=== PATIENT | female | born 2005 | race Caucasian/White ===

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

== ENCOUNTER 2025-02-13 17:38 | Emergency (ER) | payer OTHER, SELFPAY ==
--- NOTE | 2025-02-13 17:44 | ED.URI ---
HPI - URI/Sore Throat General Chief Complaint: Upper Respiratory Infection Stated Complaint: strep Time Seen by Provider: 02/13/25 17:41 Source: patient Mode of arrival: ambulatory Limitations: no limitations History of Present Illness HPI Narrative: patient is a 19-year-old female who presents with sore throat that started this morning. also having neck pain, headache, hot cold chills, body aches. Patient is currently going through miscarriage. Denies any fever, nausea, vomiting, diarrhea. Related Data Allergies Allergy/AdvReac Type Severity Reaction Status Date / Time No Known Drug Allergies Allergy Unknown Verified 02/13/25 17:48 Review of Systems Review of Systems: All systems reviewed & are unremarkable except as noted in HPI and below Constitutional: Constitutional: Reports chills, Reports fatigue, Denies fever(s), Reports headache(s), Denies malaise and Denies weakness Eyes: Eyes: Denies blurry vision, Denies itchy eyes and Denies loss of vision ENT: Denies otalgia, Reports headache(s), Denies nasal congestion, Denies sinus pain and Reports sore throat Cardiovascular: Cardiovascular: Denies chest pain, Denies irregular heart rhythm and Denies dyspnea Respiratory: Respiratory: Denies cough and Denies dyspnea Gastrointestinal: Gastrointestinal: Denies abdominal pain, Denies diarrhea, Denies nausea and Denies vomiting Musculoskeletal: Musculoskeletal: Denies back pain, Reports myalgias and Denies arthralgias Integumentary/Breasts: Skin/Breast: Denies pruritus and Denies rash Neurologic: Reports headache(s), Denies loss of vision and Denies weakness Psychiatric: Psychiatric: Reports no additional psychiatric complaints Endocrine: Endocrine: Denies fatigue Allergic/Immunologic: Allergic/Immunologic: Denies itchy eyes PMFSH Social History Social History Smoking status: Never smoker Gender identity (if verbalized by the patient): Female Comments At time of signature, agree with nursing past medical, surgical, social and family history. There is no relevant family history pertinent to the presenting complaint. Exam Const: General: cooperative, healthy appearing, comfortable, no acute distress and well nourished Nutritional Appearance: well nourished Orientation/consciousness: patient oriented x3 Limitations: no limitations HENMT: Head: normal to inspection, normocephalic and atraumatic Ears: hearing grossly normal bilaterally, external ears normal, TM's normal bilaterally, EAC's normal and no periauricular adenopathy Face/Nose/Sinus: Normal external nose present, Abnormal mucous membranes and turbinates present erythematous bilateral and diffuse, normal facial exam, sinuses nontender and face symmetric Face and sinus: normal facial exam, sinuses nontender and face symmetric Mouth: Yes Normal oral and palatal mucosa present, Yes lip normal, Yes tongue normal, Yes Normal salivary glands and ducts present, Yes oropharynx normal and Yes moist mucous membranes Teeth and gingiva: dentition normal Throat: uvula midline, posterior oropharynx abnormal erythema and exudates and tonsils absent Eyes: General: appearance normal, both eyes and all related structures Alignment and Position: alignment normal and position normal Periorbital: periorbital findings normal Eyelids: eyelids normal Pupils: Equal, round and reactive pupils present Neck: Neck: normal visual inspection, full ROM, no lymphadenopathy and supple Chest: Chest palpation & inspection: normal inspection of the chest and normal palpation of entire chest wall Resp: Effort & Inspection: normal respiratory effort and able to speak in complete sentences Auscultation: clear to auscultation bilaterally, no crackles, no rales, no rhonchi and no wheezes Cardio: Rate: tachycardic Rhythm: regular rhythm Heart sounds: S1 normal heart sound present and S2 normal heart sound present GI: Inspection: normal to inspection Skin: General skin exam: normal color and no rashes or lesions noted Neuro: General: patient oriented x3 and moves all extremities Cranial nerves: Yes Equal, round and reactive pupils present Speech: normal speech Gait exam (Neuro): Normal gait present Extrem: General: normal to inspection, full ROM and no edema Psych: Appearance: grossly normal and well kempt Mental Status: mental status grossly normal Speech and movement: Normal speech and movement present Affect: normal affect Attitude: cooperative Thought process: Normal thought process present Course Course Emergency Course: Patient is aware of diagnosis, understands and agrees to treatment plan. Anticipatory guidance given. Patient agrees to follow-up as directed and is aware of reasons to seek care at the emergency department. Portions of this record may have been created with voice recognition software Level of Care: Express Care Visit Vital Signs Vital signs: Vital Signs Temperature 37.6 C H 02/13/25 18:04 Pulse Rate 135 H 02/13/25 18:04 Respiratory Rate 18 02/13/25 18:04 Blood Pressure 114/63 02/13/25 18:04 Pulse Oximetry 99 02/13/25 18:04 Oxygen Delivery Room Air 02/13/25 18:04 Temperature 37.6 C H 02/13/25 18:04 Pulse Rate 135 H 02/13/25 18:04 Respiratory Rate 18 02/13/25 18:04 Blood Pressure 114/63 02/13/25 18:04 Pulse Oximetry 99 02/13/25 18:04 Oxygen Delivery Room Air 02/13/25 18:04 MDM MDM Narrative Medical decision making narrative: Strep was positive. Will treat with antibiotics. education provided to prevent infection Pt well hydrated appearing, in no respiratory distress, hemodynamically stable. Recommend supportive care. The patient is stable at time of discharge the clinical impression was discussed and the patient was given the opportunity to ask questions, which were addressed as completely as possible given the information available at present. Anticipatory guidance and return to care precautions were discussed and the importance of primary care follow-up was stressed and encouraged. The patient voiced understanding of the plan, indications to return, and the need for follow-up. Exam findings show no acute concerns or changes Patient is appropriate for outpatient treatment and follow-up. Differential Diagnosis Differential Diagnosis: Differential diagnosis considered: Ruiz virus, strep pharyngitis, allergic rhinitis, upper respiratory tract infection, sinusitis, rhinosinusitis, nasopharyngitis. viral pharyngitis, otitis media, otitis externa, otitis effusion, foreign body, cerumen impaction, viral syndrome, and influenza. Medical Records I have reviewed the following patient records and this information was taken into consideration when formulating the assessment and plan.: previous clinic visits Lab Data Labs: Lab Results 02/13/25 02/13/25 Range/Units 18:11 18:17 POC Influenza A Ag Negative (Negative) POC Influenza B Ag Negative (Negative) POC SARS CoV-2 Ag Negative (Negative) POC Grp A Strep Screen Positive (Negative) Discharge Plan Discharge Clinical Impression: Strep throat Patient Disposition: Home Condition: Stable Instructions: Strep Throat (ED) Additional Instructions: Your rapid strep swab was positive today at [facility]. After 24 hours on antibiotics throw tooth brush away and start using a new one. Wash your sheets and cup/water bottle that is used daily. Do not share drinks. Take Motrin alternating with Tylenol for pain and fever alternating every 3 hours. 8 AM: Tylenol 11 AM: Ibuprofen 2 PM: Tylenol 5 PM: Ibuprofen 8 PM: Tylenol 11 PM: Ibuprofen 2 AM: Tylenol 5 AM: Ibuprofen Increase fluids, avoid caffeine. Other symptomatic treatments include: -Antihistamine medication such as Benadryl at night and Zyrtec/Claritin/Jazzy during the day can help improve symptoms. -Use Flonase twice a day for 5 days then daily to help reduce the inflammation and dry up your sinuses. -You can also use Sudafed or Mucinex. Be sure to drink plenty of water with these medications at least 8 ounces with every dose and it is important to drink 8 to 10 glasses of water per day. Water is a natural decongestant -Eat and drink things that are easy to swallow, like tea or soup, or popsicles. -Oral rinses such as: Salt water gargles and/or may use topical anesthetic (eg. Chloraseptic spray) or lozenges to relieve dryness or throat pain). -Frequent hand washing or hand automotive metalsmith is one of the best ways to prevent spread of infection. -Using a vaporizer or humidifier at night will also help thin secretions and help with coughing up phlegm. -Follow up with primary care provider in 3-5 days if condition is not improving - For new or worsening symptoms go directly to the nearest ER Patient Language: Latvian Prescriptions: New amoxicillin 500 mg capsule 500 mg PO BID 10 Days Qty: 20 0RF Follow-up/Referrals: Nina,Oscar Buitrago MD [Primary Care Provider] Stand Alone Forms: Work/School Release IP Time of Disposition: 18:34
--- OUTSIDE RECORDS SUMMARY | 2025-02-13 17:45 | XMS_ITS | Encounter Summary ---
Author Organization [facility] Healthcare Address [address] [place] [address] Care Team Providers Care Investigation Division Sergeant Name Role Phone No, Physician Primary Care Provider [phone] Encounter Details Date Type Department Care Team (Late st Contact Info) Description 09/08/2024 Documentation [facility] [address] [place] [address] 4th [address] [place] [address] Aurea Stafford Social History Tobacco Use Types Packs/Day Years Used Date Smoking Tobacco: Never Smokeless Tobacco: Never Comments Unknown Sex and Gender Information Value Date Recorded Sex Assigned at Not on file 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
--- OUTSIDE RECORDS SUMMARY | 2025-02-13 17:45 | XMS_ITS | Clinical Summary ---
Author Organization [facility] Address [address] [place] [address] Care Team Providers Care Securities Consultant Name Role Phone Surendra Wood MD Primary Care Provider Social History Tobacco Use Types Packs/Day Years Used Date Smoking Tobacco: Never Assessed Comments Unknown Sex and Gender Information Value Date Recorded Sex Assigned at Not on file Legal Sex Female 11:54 PM CDT Gender Identity Not on file Sexual Orientation Not on file Plan of Treatment Health Maintenance Due Date Last Done Comments Hepatitis C Virus (HCV) Screening 2003 Meningococcal B Immunization (2 of 2 - Bexsero SCDM 2-dose series) 11/30/2020 05/30/2020 Influenza Immunization (#1) 2024 11/0 06/2013, 03/07/2013, 03/19/2010 SARS-COV-2 Immunization (2024- season) 2024 Respiratory Syncytial Virus (RSV) Immunization (Adult) (1 - 1-dose 75+ series) 08/02/2078 Hepatitis B Immunization Completed 004, 2003, 2003, Additional history exists Pneumococcal Immunization Combined Aged Out 11/26/2004, 02/22/2004, 2003, Additional history exists No longer eligible based on patient's age to complete this topic Hepatitis A Immunization Discontinued 02/19/2006, 07/14 Measles Mumps Rubella (MMR) Immunization Discontinued 07/09/2008, 08/13/2004 Polio (IPV) Immunization Discontinued 009, 02/22/2004, 2003, Additional history exists Varicella Immunization Completed 07/09/2008, 2004 DTaP/Tdap/Td Immunization Discontinued 2013, 07/09/2008, 11/26/2004, Additional history exists TdaP Immunization Completed 10/24/2013 Human Papillomavirus (HPV) Immunization Completed 06/18/2016, 12/23/2015, 10/21/2015 Meningococcal Immunization (ACWY) Completed 05/30/2020, 10/21/2015 Rotavirus Immunization Aged Out No lo nger eligible based on patient's age to complete this topic Insurance [place] Care Teams Securities Consultant Relationship Specialty Start Date End Date Surendra Wood MD [address] [place] [address] [place] [id number] PCP - General Pediatrics 05/02/20
--- OUTSIDE RECORDS SUMMARY | 2025-02-13 17:45 | XMS_ITS | Continuity of Care Document ---
Author Organization [facility] [place] Address [address] [place] [address] Assessment No assessment recorded. Plan of Treatment Reminders Order Date Submit Date Provider Last Modified By Organization Details Last Modified Time Details Appointments None recorded. Lab None recorded. Referral None recorded. Procedures None recorded. Surgeries None recorded. Imaging None recorded. Medication Orders Cytotec 200 mcg tablet 025 025 [id number], [address] [place], [address], 15:17:54 Patient TargetsNo targets recorded. Patient InstructionsNo instructions recorded. Reason for Referral None Reported. Results Created Date Observation Date Name Description Value Unit Range Abnormal Flag Note LastModifiedBy Organization Detail LastModifiedTime 01/27/20 25 01/26/2025 US, obste tric, trans vagin al No observ ation record ed. [facility] [address], [place], [address], 01/26/2025 16:58:27 01/27/20 25 01/26/2025 US, obste tric, trans vagin al No observ ation record ed. [email or web address] [place] [address], [place], [address], 01/26/2025 18:03:28 02/03/20 25 02/02/2025 US, obste tric, trans vagin al No observ ation record ed. [facility] [address], [place], [address], 02/02/2025 16:57:32 02/03/20 25 02/02/2025 US, obste tric, trans vagin al No observ ation record ed. [email or web address] [place] [address], [place], [address], 02/03/2025 23:19:10 Result Notes None recorded. Procedures Surgical History Date Name Laterality Status Provider Name and Address Organization Details Recorded Time 7 Tonsillectomy completed Zenaida Arevalo [facility] 01/11/2021 12:32:53 Imaging Results None recorded. Procedure Notes None recorded. Medical Equipment None Reported. Allergies No known drug allergies Medications Name Sig Start Date Stop Date Status Note LastModified by Organization Details LastModified Time cyclobenzapr ine 10 mg tablet TAKE 1 TABLET BY MOUTH EVERY 12 HOURS NEEDED 12/18 completed Not Available Not Available Not Available amoxicillin 500 mg capsule TAKE 1 CAPSULE BY MOUTH THREE TIMES A DAY FOR 10 DAYS 04/22 completed Not Available Not Available Not Available Cytotec 200 mcg tablet Take 5 tablets by oral route. 2024 active Not Available Not Available Not Avai lable hydrocodone 5 mg-acetamino phen 325 mg tablet Take 1 tablet every 6 hours by oral route. 2024 active Not Available Not Available Not Avai lable ondansetron HCl 8 mg tablet 12/17 completed Not Available Not Available Not Available prednisone 20 mg tablet TAKE 3 TABLETS EVERY DAY BY ORAL ROUTE FOR 5 DAYS. 01/13 completed Not Available Not Available Not Available metronidazol e 500 mg tablet Take 1 tablet twice a day by oral route with meal(s) for 7 days. 01/01 completed Not Available Not Available Not Available propranolol 10 mg tablet 02/28 completed Not Available Not Available Not Available amitriptylin e 25 mg tablet TAKE 1 TABLET BY MOUTH EVERY DAY active Not Available Not Available No t Available Nortrel 1/35 (21) 1 mg-35 mcg tablet take 1 tablet daily 12/18 completed Not Available Not Available Not Available hydrocortiso ne 2.5 % topical cream 01/13 completed Not Available Not Available Not Available ergocalcifer ol (vitamin D2) 1,250 mcg (50,000 unit) capsule 12/17 completed Not Available Not Available Not Available ibuprofen 600 mg tablet 06/03 completed Not Available Not Available Not Available propranolol 20 mg tablet 02/28 completed Not Available Not Available Not Available hydrocortiso ne 2.5 % topical ointment 01/11 completed Not Available Not Available Not Available fluticasone propionate 50 mcg/actuatio n nasal spray,suspen del USE ONE SPRAY IN EACH NOSTRIL ONCE A DAY 01/13 completed Not Available Not Available Not Available amoxicillin 875 mg-potassium clavulanate 125 mg tablet TAKE 1 TABLET BY MOUTH EVERY 12 HOURS FOR 10 DAYS 04/22 completed Not Available Not Available Not Available naproxen 375 mg tablet,delay ed release TAKE 1 TABLET BY MOUTH EVERY 8 HOURS AFTER MEALS NEEDED 12/18 completed Not Available Not Available Not Available 1.08/11 (28) 1.5 mg-30 mcg (21)/75 mg (7) tablet 12/27 completed Not Available Not Available Not Available hydrocodone 5 mg-acetamino phen 300 mg tablet Take 1 tablet every 4 hours by oral route. active Not Available Not Available No t Available cholecalcife rol (vitamin D3) 1,250 mcg (50,000 unit) capsule active Not Available Not Available Not Available Vitals None Recorded Social History Question Answer Notes LastModified by Organizat ion Details LastModified Time Tobacco Smoking Status Never Smoker [facility] 12/18/2019 12:58:42 If You Are , What Was Your Level Of Alcohol Consumption Prior To ? None [email or web address] Information not available 01/11/2021 Are You Blind Or Do You Have Difficulty Seeing? No [email or web address] Information n ot available 01/11/2021 What Is Your Level Of Caffeine Consumption? Occasional [email or web address] Information not available 01/11/2021 In The 14 Days Before Symptom Onset, Have You Had Close Contact With A Laboratory-confirm ed COVID-19 While That Case Was Ill? No [email or web address] Information n ot available 01/11/2021 In The 14 Days Before Symptom Onset, Have You Had Close Contact With A Person Who Is Under Investigation For COVID-19 While That Person Was Ill? No [email or web address] Information not available 01/11/2021 Have You Been To An Area Known To Be High Risk For COVID-19? No [email or web address] Information not available 01/11/2021 Are You Deaf Or Do You Have Serious Difficulty Hearing? No [email or web address] Information not available 01/11/2021 What Type Of Diet Are You Following? REGULAR [email or web address] Information n ot available 01/11/2021 Have You Ever Been Counseled For Unhealthy Alcohol Use? No [email or web address] Information not available 01/11/2021 Do You Use Your Seat Belt Or Car Seat Routinely? Yes [email or web address] Information not available 01/11/2021 Do You Have Smoke And Carbon Monoxide Detectors In Your Home? Yes [email or web address] Information not available 01/11/2021 Do You Use Sunscreen Routinely? Yes [email or web address] Information not available 01/11/2021 Has Tobacco Cessation Counseling Been Provided? No [email or web address] Information not available 01/11/2021 Sex: Unknown Functional Status Question Answer Note LastModified by Organizat ion Details LastModified Time Do you use any illicit or recreational drugs? No [email or web address] Information not available 01/11/2021 Do you or have you ever used any other forms of tobacco or nicotine? No Information not available 01/11/2021 What is your level of alcohol consumption? Occasional [email or web address] Information not available 01/11/2021 Are you able to walk independently without assistance or assistive devices? YESWOREST [email or web address] Information not available 01/11/2021 What is your exercise level? Occasional [email or web address] Information not available 01/11/2021 Mental Status Question Answer Note LastModified by Organization D etails LastModified Time Do you feel stressed (tense, restless, nervous, or anxious, or unable to sleep at night)? [id number] [email or web address] Information not available 01/11/2021 Family History Relationship Description Onset Age of this Age Resolved Age Notes LastModified by Organization Details LastModified Time Mother Malignant neoplasm of cervix uteri [email or web address] Not available 07/2019 12:57:13 Mother Hypertensive disorder [email or web address] Not available 2019 12:57:42 Mother Cyst of ovary [email or web address] Not available 2019 12:58:10 Father Heart disease [email or web address] Not available 2019 12:57:22 Father Diabetes mellitus [email or web address] Not available 2019 12:57:29 Father Hypertensive disorder [email or web address] Not available 2019 12:57:42 Sister Cyst of ovary [email or web address] Not available 2019 12:58:10 Sister Uterine prolapse [email or web address] Not available 2019 12:58:33 Maternal Grandmother Malignant neoplasm of cervix uteri [email or web address] Not available 07/2019 13:05:44 Maternal Aunt Malignant neoplasm of cervix uteri [email or web address] Not available 07/2019 13:05:49 Maternal Aunt Cyst of ovary [email or web address] Not available 2019 13:05:59 Maternal Aunt Endometrial carcinoma Not available 01/13 15:43:27 Maternal Aunt Endometrial carcinoma [email or web address] Not available 01/13 15:43:27 Son Malignant neoplasm of ovary matern al cousin x2 [email or web address] Not available 01/13/2021 15:42:56 Medical History Condition Response Allergies (Food, seasonal, environmental ) N Other N Drug/Latex Allergies/Reactions N Blood Transfusion N Breast Cancer N Dermatologic Disorders N Lung Disease N Defects or Inherited Disease N Breast Problem N Gestational Diabetes N Hematologic disorders N Anesthesia Complications N History of STI N Deep Vein Thrombosis N Polycystic ovary syndrome N Anxiety Disorder Y Autoimmune disease N Arthritis N Polyps N Infertility N Acid Reflux (GERD) N History of abnormal pap N Cancer N Varicosities N Stroke N Neurologic/Epilepsy N Endometriosis N High Cholesterol N Fibromyalgia N Headaches Y Kidney Disease N Heart Problems N Thyroid Problems N Kidney or Bladder Problems N GI Problems N Eating Disorder N Anemia N Art (IVF or FET) N Psychiatric Illness N Ovarian Cancer N Diabetes N Pulmonary (TB, Asthma) N Hepatitis/Liver Disease N No Past Medical History N Eczema N Urinary Tract Infection N Abuse/Domestic Violence N Asthma N Trauma/Violence N Depression/ depression N Heart Disease N Pre-Eclampsia N Hypertension N Osteoporosis N Thrombophilias N Gynecological History Statement/Question Response Flow Moderate Date of Last Mammogram Date of LMP 11/27/2024 Was last menstrual period normal Y STIs/STDs N HPV Vaccine Y Duration of Flow (days) 5 14 Current Control Method None Are cycles usually normal Y Date of Last Colonoscopy Frequency of Cycle (Q days) 28 Sexually Active? Y Menses Monthly Y Date of DEXA bone scan Age of first menstrual cycle 11 Date of Last Pap Smear Sexual Problems? N Desired Control Method None LMP Approximate Obstetrics History GPAL:G 0 P 0 0 0 0 Type Value Living 0 Total 0 Past Encounters Encounter ID Performer Location Encounter Start Date Encounter Closed Date Diagnosis/Indication Diagnosis SNOMED-CT Code Diagnosis ICD10 Code Diagnosis IMO Codes Diagnosis Note [id number] Franklin Avendaño MD [place] [address] [address] 01/26/2025 14:29:35 01/26/2025 15:03:50 Uncertain viability of [id number] O36.80X0 Z3A.01 [id number] Franklin Avendaño MD [facility] [address],[place] [address] 01/26/2025 14:30:49 01/26/2025 17:40:53 [id number] Franklin Avendaño MD [place] [address],[place] [address] 02/02/2025 13:23:19 02/02/2025 14:08:12 Missed miscarriage [id number] O02.1 Z3A.01 [id number] Franklin Avendaño MD [facility] [address],[place] [address] 02/02/2025 14:37:10 02/02/2025 15:24:13 Missed miscarriage [id number] O02.1 [id number] This patient is a 19 y/o female who presents for [missed/th reatened/i ncomplete] discussed the etiology, frequency, natural history, and treatment of this condition. Spent more than 35 minutes talking about the above, as well as, her history, the particular findings of her case, and detail of her the treatment options. We discussed the risk benefits of each option. She understand s the risk include infection and hemorrhage . She understand s a D&C also holds the risk of injury. She understand s that waiting can result in a septic that is even more difficult to treat. We talked about signs and symptoms of infection. The patient elected to use medication to complete the miscarriag e. She was given instructio ns and precaution s. She was given risks, benefits, and alternativ es to the treatment. She will follow up in 1 week. Spent over 30 minutes on the patient's care in total. Health Concerns Section Related Observation LastModified by Organization Detai ls LastModified Time None Recorded Concern Status LastModified by Organization Details LastModified Time None Recorded Payers Encounter Date Sequence Insurance Name Policy Number Policy Reyes Covered Member ID Reyes Member ID Guarantor Name 02/02/2025 1 [facility] (MEDICAID HMO) [id number] [facility] [id number] [facility] Notes Date Note Type Note Provider Name and Address Organization Details Recorded Time 02/02/2025 text/html This patient is a 19 y/o female who presents for [missed/threatened /incomplete] discussed the etiology, frequency, natural history, and treatment of this condition. Spent more than 35 minutes talking about the above, as well as, her history, the particular findings of her case, and detail of her the treatment options. We discussed the risk benefits of each option. She understands the risk include infection and hemorrhage. She understands a D&C also holds the risk of injury. She understands that waiting can result in a septic that is even more difficult to treat. We talked about signs and symptoms of infection. The patient elected to use medication to complete the miscarriage. She was given instructions and precautions. She was given risks, benefits, and alternatives to the treatment. She will follow up in 1 week. Spent over 30 minutes on the patient's care in total. Franklin Avendaño MD [address], [place], [address], [place] [facility] 02/02/2025 15:18:18 OBGyn Episode No OBEpisode recorded.
--- OUTSIDE RECORDS SUMMARY | 2025-02-13 17:45 | XMS_ITS | Clinical Summary ---
Author Organization [facility] Address [address] [place] [address] Care Team Providers Care Business Trainer Name Role Phone No, Physician Primary Care Provider [phone] Allergies No known active allergies Medications Nortrel 135, 21, 1-35 mg-mcg (21) tablet 03/27/19 23 Active ibuprofen (ADVIL,MOTRIN) 600 mg tablet Take 1 tablet (600 mg total) by mouth every 6 (six) hours as needed for pain or headaches 30 tablet 6 07/21/19 23 Active ergocalciferol (VITAMIN D) 50,000 unit capsule Take 1 capsule (50,000 Units total) by mouth once a week 4 capsule 6 07/26/19 25 Active propranoloL (INDERAL) 20 mg tabletIndicatio ns:Migraine without aura and without status migrainosus, not intractable TAKE 1 TABLET (20 MG TOTAL) BY MOUTH DAILY 30 tablet 2 01/19/20 25 Active propranoloL (INDERAL) 20 mg tabletIndicatio ns:Migraine without aura and without status migrainosus, not intractable Take 1 tablet (20 mg total) by mouth daily 30 tablet 5 08/16/19 25 025 Discontinued Active Problems Problem Noted Date Diagnosed Date TMJ (dislocation of temporomandibular joint), se quela 06/14/2023 Migraine without aura and wi thout status migrainosus, not intractable 06/14/2023 Chronic daily headache 04/01/2022 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 Social History Tobacco Use Types Packs/Day Years Used Date Smoking Tobacco: Never Smokeless Tobacco: Never Tobacco Cessation:Counseling Given: Not Answered Comments Unknown Sex and Gender Information Value Date Recorded Sex Assigned at Not on file 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 Gender Identity Not on file Sexual Orientation Not on file Last Filed Vital Signs Vital Sign Reading Time Taken Comments Blood Pressure 121/86 07/25/2024 8:16 AM CDT Pulse 85 07/25/2024 8:16 AM CDT Temperature 36.6 C (97.9 F) 07/25/2024 8:16 AM CDT Respiratory Rate 16 07/20/2022 10:56 AM CDT Oxygen Saturation 99% 07/25/2024 8:16 AM CDT Inhaled Oxygen Concentration - - Weight 66.3 kg (146 lb 2 oz) 07/25/2024 8:16 AM CDT Height 173.5 cm (5' 8.31) 07/25/2024 8:16 AM CD T Body Mass Index 22.02 07/25/2024 8:16 AM CDT Plan of Treatment Health Maintenance Due Date Last Done Comments Cervical Cancer Screening 2003 Depression Screening 2003 Hepatitis C Screening 2003 Meningococcal B Vaccine (2 o f 2 - Bexsero SCDM 2-dose series) 11/30/2020 05/30/2020 Regular Well Visit/Exam 18-64 08/02/2021 DTaP/Tdap/Td Vaccine (7 - Td or Tdap) 10/25/2023 10/24/2013, 07/09/2008, 11/26/2004, Additional history exists Influenza Vaccine (#1) 2024 4, 03/07/2013, 03/19/2010, Additional history exists Hepatitis B Screening Completed 02/22/2004 , 2003, 2003, Additional history exists Pneumococcal vaccine <65 Completed 005, 02/22/2004, 2003, Additional history exists Varicella Vaccines Completed 07/09/2008, 08/13/2004 HPV Vaccines Completed 06/18/2016, 12/13, 10/21/2015 Meningococcal Vaccine Completed 05/30/2020, 016 Insurance [facility] Care Teams Business Trainer Relationship Specialty Start Date End Date No, Physician PCP - General 06/14/23
--- OUTSIDE RECORDS SUMMARY | 2025-02-13 17:45 | XMS_ITS | Continuity of Care Document ---
Author Organization [facility] [place] Address [address] [place] [address] Assessment No assessment recorded. Plan of Treatment Reminders Order Date Submit Date Provider Last Modified By Organization Details Last Modified Time Details Appointments None record ed. Lab None record ed. Referral None record ed. Procedures None record ed. Surgeries None record ed. Imaging None record ed. Medication Orders None record ed. Patient TargetsNo targets recorded. Patient InstructionsNo instructions recorded. Reason for Referral None Reported. Results Created Date Observation Date Name Description Value Unit Range Abnormal Flag Note LastModifiedBy Organization Detail LastModifiedTime 01/27/20 25 01/26/2025 US, obste tric, trans vagin al No observ ation record ed. [facility] [address], [place], [address], 01/26/2025 16:58:27 01/27/20 25 01/26/2025 US, obste tric, trans vagin al No observ ation record ed. [email or web address] [place] [address], [place], [address], 01/26/2025 18:03:28 02/03/20 25 02/02/2025 US, obste tric, trans vagin al No observ ation record ed. [facility] [address], [place], [address], 02/02/2025 16:57:32 02/03/20 25 02/02/2025 US, obste tric, trans vagin al No observ ation record ed. [email or web address] [place] [address], [place], [address], 02/03/2025 23:19:10 Result Notes None recorded. Procedures Surgical History Date Name Laterality Status Provider Name and Address Organization Details Recorded Time 7 Tonsillectomy completed Zenaida Arevalo [facility] 01/11/2021 12:32:53 Imaging Results None recorded. [...] completed Not Available Not Available Not Available .08/11 (28) 1.5 mg-30 mcg (21)/75 mg (7) [...] Time Tobacco Smoking Status [email or web address] 12/18/2019 12:58:42 If You Are , What Was Your Level Of Alcohol Consumption Prior To ? None [email or web address] Information not available 01/11/2021 Are You Blind Or Do You Have Difficulty Seeing? No [email or web address] Information n ot available 01/11/2021 What Is Your Level Of Caffeine Consumption? Occasional [email or web address] Information not available 01/11/2021 In The 14 Days Before Symptom Onset, Have You Had Close Contact With A Laboratory-confirm ed COVID-19 While That Case Was Ill? No [email or web address] Information n ot available 01/11/2021 In The 14 Days Before Symptom Onset, Have You Had Close Contact With A Person Who Is Under Investigation For COVID-19 While That Person Was Ill? No [email or web address] Information not available 01/11/2021 Have You Been To An Area Known To Be High Risk For COVID-19? No [email or web address] Information not available 01/11/2021 Are You Deaf Or Do You Have Serious Difficulty Hearing? No [email or web address] Information not available 01/11/2021 What Type Of Diet Are You Following? REGULAR [email or web address] Information n ot available 01/11/2021 Have You Ever Been Counseled For Unhealthy Alcohol Use? No [email or web address] Information not available 01/11/2021 Do You Use Your Seat Belt Or Car Seat Routinely? Yes [email or web address] Information not available 01/11/2021 Do You Have Smoke And Carbon Monoxide Detectors In Your Home? Yes [email or web address] Information not available 01/11/2021 Do You Use Sunscreen Routinely? Yes [email or web address] Information not available 01/11/2021 Has Tobacco Cessation Counseling Been Provided? No Information not available 01/11/2021 Sex: Unknown Functional Status Question Answer Note LastModified by Organizat ion Details LastModified Time Do you use any illicit or recreational drugs? No [email or web address] Information not available 01/11/2021 Do you or have you ever used any other forms of tobacco or nicotine? No [email or web address] Information not available 01/11/2021 What is your level of alcohol consumption? Occasional [email or web address] Information not available 01/11/2021 Are you able to walk independently without assistance or assistive devices? YESWOREST [email or web address] Information not available 01/11/2021 What is your exercise level? Occasional Information not available 01/11/2021 Mental Status Question Answer Note LastModified by Organization D etails LastModified Time Do you feel stressed (tense, restless, nervous, or anxious, or unable to sleep at night)? [id number] [email or web address] Information not available 01/11/2021 Family History Relationship [...] available 2019 13:05:59 Maternal Aunt Endometrial carcinoma [email or web address] Not available 01/13 15:43:27 Maternal Aunt Endometrial carcinoma [email or web address] Not available 01/13 15:43:27 Son Malignant neoplasm of ovary matern al cousin x2 Not available 01/13/2021 15:42:56 Medical History Condition [...] ICD10 Code Diagnosis IMO Codes Diagnosis Note [id number] Franklin Avendaño MD [facility] [address] [address] 01/26/2025 14:29:35 01/26/2025 15:03:50 Uncertain viability of [id number] O36.80X0 Z3A.01 [id number] Franklin Avendaño MD [facility] [address] [address] 01/26/2025 14:30:49 01/26/2025 17:40:53 Health Concerns Section Related Observation LastModified by Organization Detai ls LastModified Time None Recorded Concern Status LastModified by Organization Details LastModified Time None Recorded Payers Encounter Date Sequence Insurance Name Policy Number Policy Reyes Covered Member ID Reyes Member ID Guarantor Name 01/26/2025 1 [facility] (MEDICAID HMO) [id number] Yahaira Spraggs [id number] Yahaira Spraggs OBGyn Episode No OBEpisode recorded.
--- OUTSIDE RECORDS SUMMARY | 2025-02-13 17:45 | XMS_ITS | Data Portability ---
Author Organization [facility] [place], [facility] Address [address] [place] [address] [place] [address] Assessment No assessment recorded. Plan of Treatment Reminders Order Date Submit Date Provider Last Modified By Organization Details Last Modified Time Details Appointments None recorded. Lab None recorded. Referral None recorded. Procedures None recorded. Surgeries None recorded. Imaging US, obstetric, transvagina l 2024 025 [facility], [address], [address], [place], [address], 23:38:12 US, obstetric, transvagina l 2024 025 [facility], [address], [address], [place], [address], 17:50:56 Medication Orders Cytotec 200 mcg tablet 2024 025 [id number], [address] [place], [address], 15:17:54 Patient TargetsNo targets recorded. Patient InstructionsNo instructions recorded. Reason for Referral None Reported. Results Created Date Observation Date Name Description Value Unit Range Abnormal Flag Note LastModifiedBy Organization Detail LastModifiedTime 01/27/2001/26/2025 US, obste tric, trans vagin al No observ ation record ed. [facility] [address], [place], [address], 01/26/2025 16:58:27 01/27/2006 0201/26/2025 US, obste tric, trans vagin al No observ ation record ed. [email or web address] [facility] [address], [place], [address], 01/26/2025 18:03:28 02/03/20 25 02/02/2025 US, obste tric, trans vagin al No observ ation record ed. [facility] [address], [place], [address], 02/02/2025 16:57:32 02/03/20 25 02/02/2025 US, obste tric, trans vagin al No observ ation record ed. [email or web address] [facility] [address], [place], [address], 02/03/2025 23:19:10 Result Notes None recorded. Procedures Surgical History Date Name Laterality Status Provider Name and Address Organization Details Recorded Time 7 Tonsillectomy completed Zenaida Arevalo [facility] [place] 01/11/2021 12:32:53 Imaging Results None recorded. [...] Available Not Available No t Available Nortrel 35 (21) 1 mg-35 mcg tablet take 1 [...] Not Available Not Available Not Available Vitals Date Recorded Body height Body mass index (BMI) Body weight Systolic And Diastolic Provider Name and Address Organization Details Last Updated DateTime 02/07/2025 172.72 cm 22.4 kg/m2 19221.08 g 137/82 mm[Hg] Sangita Vaughn [facility] 02/07/2025 17:19:35 Social History Question Answer Notes LastModified by Organizat ion Details LastModified Time Tobacco Smoking Status Never Smoker [place], [facility] 12/18/2019 12:58:42 If You Are , What Was Your Level Of Alcohol Consumption Prior To ? None [email or web address] Information not available 01/11/2021 Are You Blind Or Do You Have Difficulty Seeing? No [email or web address] Information n ot available 01/11/2021 What Is Your Level Of Caffeine Consumption? Occasional [email or web address] Information not available 01/11/2021 In The 14 Days Before Symptom Onset, Have You Had Close Contact With A Laboratory-confirm ed COVID-19 While That Case Was Ill? No [email or web address] Information n ot available 01/11/2021 In The 14 Days Before Symptom Onset, Have You Had Close Contact With A Person Who Is Under Investigation For COVID-19 While That Person Was Ill? No [email or web address] Information not available 01/11/2021 Have You Been To An Area Known To Be High Risk For COVID-19? No [email or web address] Information not available 01/11/2021 Are You Deaf Or Do You Have Serious Difficulty Hearing? No Information not available 01/11/2021 What Type Of Diet Are You Following? REGULAR [email or web address] Information n ot available 01/11/2021 Have You Ever Been Counseled For Unhealthy Alcohol Use? No Information not available 01/11/2021 Do You Use Your Seat Belt Or Car Seat Routinely? Yes [email or web address] Information not available 01/11/2021 Do You Have Smoke And Carbon Monoxide Detectors In Your Home? Yes Information not available 01/11/2021 Do You Use Sunscreen Routinely? Yes Information not available 01/11/2021 Has Tobacco Cessation Counseling Been Provided? No [email or web address] Information not available 01/11/2021 Sex: Unknown Functional Status Question Answer Note LastModified by Organizat ion Details LastModified Time Do you use any illicit or recreational drugs? No [email or web address] Information not available 01/11/2021 Do you or have you ever used any other forms of tobacco or nicotine? No [email or web address] Information not available 01/11/2021 What is your level of alcohol consumption? Occasional [email or web address] Information not available 01/11/2021 Are you able to walk independently without assistance or assistive devices? YESWOREST [email or web address] Information not available 01/11/2021 What is your exercise level? Occasional [email or web address] Information not available 01/11/2021 Mental Status Question Answer Note LastModified by Organization D etails LastModified Time Do you feel stressed (tense, restless, nervous, or anxious, or unable to sleep at night)? [id number] Information not available 01/11/2021 Family History Relationship [...] available 2019 13:05:59 Maternal Aunt Endometrial carcinoma [email or web address] Not available 01/13 15:43:27 Maternal Aunt Endometrial carcinoma Not available 01/13 15:43:27 Son Malignant neoplasm of ovary matern al cousin x2 Not available 01/13/2021 15:42:56 Medical History Condition Response Allergies (Food, seasonal, environmental ) N Other N Breast Cancer N Drug/Latex Allergies/Reactions N Blood Transfusion N Dermatologic Disorders N Lung Disease N Defects or Inherited Disease N Breast Problem N Gestational Diabetes N Hematologic disorders N Anesthesia Complications N History of STI N Deep Vein Thrombosis N Polycystic ovary syndrome N Anxiety Disorder Y Autoimmune disease N Arthritis N Infertility N Polyps N Acid Reflux (GERD) N History of abnormal pap N Cancer N Stroke N Varicosities N Neurologic/Epilepsy N Endometriosis N High Cholesterol N Headaches Y Fibromyalgia N Kidney Disease N Heart Problems N Kidney or Bladder Problems N Thyroid Problems N GI Problems N Eating Disorder [...] ICD10 Code Diagnosis IMO Codes Diagnosis Note [id number] Franklin Avendaño MD [facility] [address] [address] 12/18/2019 12:51:03 12/18/2019 15:03:13 Contraception care management 838997444 Z30.9 Menorrhagia 810640737 N9 2.0 This patient is a 14-year-ol d female who presents for menorrhagi a. She has heavy heavy Menses. She is on oral contracept betty pills. Yet, her periods are markedly heavy. She changes a pad or tampon every hour. her bleeding affects her quality of life and activities of daily living. We discussed all her medical treatment options. She is considerin g Nexplanon and Mirena, but will start continuous oral contracept betty pills without a break. Hopefully we will eliminate her menses altogether . She will return as needed. She is given a prescripti on for new pill, a 21 day pack. We spent over 15 minutes face-to-fa ce. More than 50% was counseling . [id number] Franklin Avendaño MD [facility] [address],[place] [address] 12/21/2019 15:00:36 12/21/2019 16:25:59 Menorrhagia 100734378 N92.0 This patient is a 14-year-ol d female who presents for menorrhagi a. She has heavy heavy Menses. She is on oral contracept betty pills. Yet, her periods are markedly heavy. She changes a pad or tampon every hour. her bleeding affects her quality of life and activities of daily living. We discussed all her medical treatment options. She is considerin g Nexplanon and Mirena, but will start continuous oral contracept betty pills without a break. Hopefully we will eliminate her menses altogether . She will return as needed. She is given a prescripti on for new pill, a 21 day pack. We spent over 15 minutes face-to-fa ce. More than 50% was counseling . [id number] Franklin Avendaño MD [facility] [address],[place] [address] 04/22/2020 15:50:03 04/22/2020 16:31:12 Cyst of right ovary [id number] N83.201 [id number] Franklin Avendaño MD [facility] [address],[place] [address] 04/22/2020 15:50:20 04/22/2020 17:26:30 Menorrhagia 550082891 N92.0 this patient is a 14-year-ol d female presents for follow-up on ovarian cysts and menorrhagi a. At a previous visit we discussed continuous oral contracept betty pills and she was prescribed a 21 day pack. The patient is not been taking the pills in that way. She takes the pills for 3 weeks and then stops and has a menses.. She does not state today the that her periods are particular ly heavy. She was not directly askedto either,but she was clear about taking the pill for 3 weeks and not taking a pill for a week,,and having a period. staff is going to contact her and see how heavy her periods are. She has abdominal pain all left lower side. She states that she does not have a bowel movement sometimes for 2 weeks. We reviewed her pelvic ultrasound pelvic ultrasound is normal. I recommend that she see pediatrici an or a gastroente rologist. It was difficult to get informatio n and decisions from the young lady and the adult with her. We talked about 3 complex topics. Cyst of ovary 09133729 N 83.209 Constipation 90462353 K5 9.00 [id number] Franklin Avendaño MD [facility] [address],[place] [address] 05/27/2020 14:49:32 05/27/2020 15:07:55 Cyst of left ovary [id number] 7201746 N83.292 [id number] Franklin Avendaño MD [facility] [address],[place] [address] 05/27/2020 14:49:44 05/27/2020 16:35:11 Constipation 25566188 K59.00 Menorrhagia 842608813 N9 2.0 Cyst of ovary 38419725 N 83.209 this patient is a 14 year old female who presents for follow-up on ovarian cyst and heavy bleeding. Last visit we talked about taking her oral contracept betty pills continuous ly. She continues to take them with the week off and has a Menses. She states Today that she wants to have a menses. Her ovarian cyst is resolved. We talked about those ultrasound results. The ultrasound was performed today. She started taking regular stool softeners for constipati on. So she is having regular bowel movements now. We addressed her 3 issues in the all appeared to be resolved at this time: Heavy bleeding, ovarian cyst, constipati on. [id number] Cassidy Cabral [facility] [address],[facility] [place] [address] 01/11/2021 11:59:24 01/12/2021 22:53:31 Gynecologic examination 13510724 Z01.419 Take Calcium with Vitamin D 1200mg daily if not receiving in daily diet. It is strongly advised to have an annual flu shot and up can obtain at most pharmacies . If you have not had a TDap shot in the last 10 years you should obtain one as well. Discussed with patient & provided with informatio n regarding Gardisil vaccine to prevent the 4 strains for HPV that cause cervical cancer. Encourage safe sexual practices, to use condoms and limit partners if not already in a monogamous relationsh ip. Do monthly self breast exams. BRCA testing is now available for patients with strong genetic history of female cancer. If interested contact the office. Engage in daily exercise of low impact aerobic exercise 45-60 minutes 4-5 times weekly. Avoid tobacco, illicit drugs, and alcohol. This lifestyle behavior pattern will lead to less health conditions and longer life span. If BMI greater than 25 weight watchers or dietary consult advised. Pap smear is not recommende d prior to the age of 21. If you have any concerns, pelvic, or vaginal problems we can discuss testing. Patient received above instructio ns, and questions have been answered. If you have any questions please call or respond to this email. Patient was made aware of the patient portal and may obtain a paper copy of today's plan if desired. Primary pap age 19yo per asccpDecli malcolm std screen this year [facility] care management [id number] Z30.9 Happy on OCPRF sent x 1yr [id number] [facility] [address] [address] 01/13/2022 11:31:00 01/13/2022 11:59:55 Gynecologic examination 35193212 Z01.419 Take Calcium with Vitamin D 1200mg daily if not receiving in daily diet. It is strongly advised to have an annual flu shot and up can obtain at most pharmacies . If you have not had a TDap shot in the last 10 years you should obtain one as well. Discussed with patient & provided with informatio n regarding Gardisil vaccine to prevent the 4 strains for HPV that cause cervical cancer. Encourage safe sexual practices, to use condoms and limit partners if not already in a monogamous relationsh ip. Do monthly self breast exams. BRCA testing is now available for patients with strong genetic history of female cancer. If interested contact the office. Engage in daily exercise of low impact aerobic exercise 45-60 minutes 4-5 times weekly. Avoid tobacco, illicit drugs, and alcohol. This lifestyle behavior pattern will lead to less health conditions and longer life span. If BMI greater than 25 weight watchers or dietary consult advised. Pap smear is not recommende d prior to the age of 21. If you have any concerns, pelvic, or vaginal problems we can discuss testing. Patient received above instructio ns, and questions have been answered. If you have any questions please call or respond to this email. Patient was made aware of the patient portal and may obtain a paper copy of today's plan if desired. Primary pap age 19yo per asccpSTD urine sentCBE wnlSBE taught Contracept ion care management 103664285 Z30.9 Happy on OCPRF sent x 1yr [id number] Cassidy Cabral , [facility] [address] [address] 06/04/2023 13:28:04 06/04/2023 14:01:31 Gynecologic examination 62926356 Z01.419 Take Calcium with Vitamin D 1200mg daily if not receiving in daily diet. It is strongly advised to have an annual flu shot and up can obtain at most pharmacies . If you have not had a TDap shot in the last 10 years you should obtain one as well. Discussed with patient & provided with informatio n regarding Gardisil vaccine to prevent the 4 strains for HPV that cause cervical cancer. Encourage safe sexual practices, to use condoms and limit partners if not already in a monogamous relationsh ip. Do monthly self breast exams. BRCA testing is now available for patients with strong genetic history of female cancer. If interested contact the office. Engage in daily exercise of low impact aerobic exercise 45-60 minutes 4-5 times weekly. Avoid tobacco, illicit drugs, and alcohol. This lifestyle behavior pattern will lead to less health conditions and longer life span. If BMI greater than 25 weight watchers or dietary consult advised. Pap smear is not recommende d prior to the age of 21. If you have any concerns, pelvic, or vaginal problems we can discuss testing. Patient received above instructio ns, and questions have been answered. If you have any questions please call or respond to this email. Patient was made aware of the patient portal and may obtain a paper copy of today's plan if desired. Pap due age 19yoSTD Screen urine sentGeneti c Screen discussedC olon Screen naDexa Screen naRoutine Labs na Vaginitis 91014836 N76.0 Suspect BV with complaints of odor/irrit ation. Counseled on medication R/B's, Most common side effects, & use. All questions were answered to patient satisfacti on. Contracept ion care management [id number] Z30.9 Happy on OCPRF sent x 1yr [id number] ABBIE Ayon [facility] [address],[facility] [place] [address] 02/29/2024 14:10:56 02/29/2024 15:24:29 Reproductive care management 765565837 Z31.9 encouraged daily PNV starting nowdiscuss ed timed IC, TTCencoura ged healthy lifestyleq uestions answeredpa p due at 19declined STI screen Time spent in visit is a total of 18 mins with at least 50% of visit consisting of counseling and review of plan of care. [id number] ABBIE Ayon [facility] [address] [address] 12/18/2024 11:56:28 12/18/2024 15:26:14 Gynecologic examination 59639978 Z01.935 [id number] [facility] - declined, encouraged daily PNVPap - done todaySTI screen - gc/ct/tric h testing sentRoutin e labs - PCPRTC in 1 yr or sooner if needed It is strongly advised to have an annual flu shot and up can obtain at most pharmacies . If you have not had a TDap shot in the last 10 years you should obtain one as well. Discussed with patient & provided with informatio n regarding the HPV vaccine if applicable . Encourage safe sexual practices, to use condoms and limit partners if not already in a monogamous relationsh ip. Do monthly self breast exams. BRCA testing is now available for patients with strong genetic history of female cancer. If interested contact the office. Engage in regular exercise. Avoid tobacco and illicit drugs. This lifestyle behavior pattern will lead to less health conditions and longer life span. If BMI greater than 25 dietary consult advised. Questions answered. Vaginal odor 696443765 N 89.8 [id number] vaginitis/ STI panel sentrx for BV, r/b/a reviewedvu lvar care guidelines discussed Venereal d isease screening 140016798 Z11.3 76535 [id number] Franklin Avendaño MD [facility] [address],[place] [address] 01/26/2025 14:29:35 01/26/2025 15:03:50 Uncertain viability of 187648835 O36.80X0 Z3A.01 [id number] Franklin Avendaño MD [facility] [address],[place] [address] 01/26/2025 14:30:49 01/26/2025 17:40:53 [id number] Franklin Avendaño MD [facility] [address],[place] [address] 02/02/2025 13:23:19 02/02/2025 14:08:12 Missed miscarriage 06649053 O02.1 Z3A.01 47350 [id number] Franklin Avendaño MD [facility] [address],[place] [address] 02/02/2025 14:37:10 02/02/2025 15:24:13 Missed miscarriage 64689699 O02.1 162590 This patient is a 19 y/o female [...] minutes on the patient's care in total. [id number] RUBY BENITEZ MD [facility] [address] [address] 02/07/2025 17:15:31 02/07/2025 17:36:06 Missed miscarriage 55800182 O02.1 50659 - diagnosed 02/02- cytotec taken yesterday, appropriat e amount of bleeding and cramping per patient- patient to call after bleeding ends, will draw hCG 1 week after bleeding resolves- warning signs reviewed Health Concerns Section Related Observation LastModified by Organization Detai ls LastModified Time None Recorded Concern Status LastModified by Organization Details LastModified Time None Recorded Advance Directives Directive None Recorded Payers Insurance Date Sequence Insurance Name Policy Number Policy Reyes Covered Member ID Reyes Member ID Guarantor Name 02/13/2025 1 [facility] (MEDICAID HMO) [id number] Yahaira Glenmont [id number] Yahaira Glenmont Notes Date Note Type Note Provider Name [...] care in total. Franklin Avendaño MD [address], [place], [address], [facility] [place] 02/02/2025 15:18:18 02/07/2025 text/html ROS as noted in the HPI Patient presents for miscarriage follow up. Was seen 1 week ago and diagnosed with missed miscarriage. She was given cytotec which she placed yesterday. Since placement she has had heavy bleeding and cramping. Not soaking through more than 2 pads per hour. No fevers or chills. RUBY BENITEZ MD [address], [place], [address], [facility] [place] 02/07/2025 17:33:38 OBGyn Episode No OBEpisode recorded.
--- OUTSIDE RECORDS SUMMARY | 2025-02-13 17:46 | XMS_ITS | Continuity of Care Document ---
Author Organization [facility], [place] Address [address] [place] [address] Assessment Encounter Date Assessment Date Assessment LastModified by Organization Details LastModified Time 12/18/2024 12/18/2024 Annual gynecological exam performed. Patient will come back in a year unless there are new symptoms. [email or web address] Not available 12/18/2024 12:45:59 Plan of Treatment Reminders Order Date Submit Date Provider Last Modified By Organization Details Last Modified Time Details Appointments None recorded. Lab unlisted lab - women's health swab plus, JACOB 2024 [facility] (Lab), [address] [place], [address], 16:04:56 pap, IG + reflex HPV if ASC-U - if hpv positive run subtyping 16, 18/45 2024 025 [facility] (Lab), [address] [place], [address], 16:04:57 Referral None recorded. Procedures None recorded. Surgeries None recorded. Imaging None recorded. Medication Orders metronidazo le 500 mg tablet 2024 025 [id number], [address] [place], [address], 05:01:21 Patient TargetsNo targets recorded. Patient InstructionsNo instructions recorded. Reason for Referral None Reported. Results Created Date Observation Date Name Description Value Unit Range Abnormal Flag Note LastModifiedBy Organization Detail LastModifiedTime 12/19/192025 [facility], JACOB bacterial vaginosis (bv), tma Positi ve negati ve abnormal Not Available [facility] (Lab) [address] [place], [address], 12/21/2024 16:04:56 12/19/19 25 12/18/2024 [facility]OB darcie species, tma Negati ve negati ve Not Available [facility] (Lab) [address] [place], [address], 12/21/2024 16:04:56 12/19/1912/18/2024 [facility] JACOB darcie glabrata, tma Negati ve negati ve Not Available [facility] (Lab) [address] [facility], [place], [address], 12/21/2024 16:04:56 12/19/19 25 12/18/2024 [facility] JACOB trichomonas vaginalis, tma Negati ve negati ve Not Available [facility] (Lab) [address] [place], [address], 12/21/2024 16:04:56 12/19/19 25 12/18/2024 [facility] JACOB chlamydia trachomatis, PCR Negati ve negati ve Not Available [facility] (Lab) [address] [place], [address], 12/21/2024 16:04:56 12/19/19 25 12/18/2024 [facility], JACOB neisseria gonorrhoeae, PCR Negati ve negati ve Bacte rial vagin osis detec ts the follo wing bacte nicole assoc iated with bacte rial vagin osis (BV): Lacto bacil morteza (L. gasse ri, L. crisp atus and L. jense giovanni), Gardn erell a vagin rene, and Atopo bium vagin ae. A singl e quali tativ e resul t is repor bria base on instr ument softw are to deter mine BV posit betty or negat betty statu s. The Helen [facility] speci es group tests for C. albic ans, C. tropi calis , C. parap esther is, C. dubli niens is. Testi ng is perfo rmed using the Trans cript ion Media bria Ampli ficat ion metho d. Tests for Helen da glabr angeles, Trich omona s vagin rene, Chlam ydia trach omati s, and Neiss eria gonor rhoea e are also inclu ded in this panel . Not Available [facility] (Lab) [address] [facility], [place], [address], 12/21/2024 16:04:56 12/19/19 25 12/18/2024 IMAGE GUIDE D PAP, REFLE X HPV IF ASCUS ONLY image guided Pap, reflex HPV ASCUS only SEE RESULT S BELOW CASE REPOR T: Cytol ogy Gynec ologi jesse Repor t Case: [id number] Autho jai núñez Provi flakita: [place], SONALI Renee cted: 12/18 1313 Order ing Locat ion: [place] [facility] Recei paul: 12/19 0205 First Scree n: Eva Hernandez ret, CT Speci men: Scree mary Pap - Image d, Cervi x STATE MENT OF ADEQU ACY: Satis facto ry for evalu ation Trans forma tion zone compo nent prese nt Parti ally obscu ring infla mmati on prese nt. ----- ----- ----- ----- ----- ----- ----- ----- ----- ----- ----- ----- ----- ----- ----- ----- ----- ---- FINAL DIAGN OSIS: Negat betty for Intra epith elial Edouard n or Jass schofield (NIL) . Shift in chiara sugge stive of bacte rial vagin osis. Elect mary ann tamayo yadira d by Eva Hernandez ret CT on 2024 at 1502 CDT ----- ----- ----- ----- ----- ----- ----- ----- ----- ----- ----- ----- ----- ----- ----- ----- ----- ---- COMME NT: This speci men was revie wed by a Cytot echno logis t and/o r Patho logis t (as indic ated in this repor t) after evalu ation using the Thinp rep Imagi ng Syste m. CLINI JESSE INFOR MATIO N: Menst rual Statu s: LMP (if appli cable ): Clini jesse Histo ry/Pr eviou s Pap: Type of Neopl sania (if appli cable ): Signi fican t Clini jesse Findi ngs: Other Histo ry: Hormo malcolm (if appli cable ): PAP EDUCA ANTONIO L NOTE: The Pap Test is a scree mary test with an inher ent false negat betty rate. Liqui d-bas ed sampl ing may decre ase, but will not elimi acacia, false negat betty resul ts. A negat betty resul t does not precl ude the prese nce and/o r devel opmen t of disea se, since the prese nce of abnor mal cells in the sampl e depen ds on the locat ion of the lesio n and sampl ing techn ique. Brandon nued regul ar scree mary is the best metho d of cance r preve ntion . If repor bria cytol ogic findi ng do not corre late with physi jesse and/o r histo rical findi ngs, furth er inves tigat ion is recom clare d, as clini jonathan norwood nted. Not Available [facility] (Lab) [address], [place], [address], 12/21/2024 16:04:57 01/27/20 25 01/26/2025 US, obste tric, trans vagin al No observ ation record ed. [facility] [address], [place], [address], 01/26/2025 16:58:27 01/27/20 25 01/26/2025 US, obste tric, trans vagin al No observ ation record ed. [email or web address], [place], [address], 01/26/2025 18:03:28 02/03/20 25 02/02/2025 US, obste tric, trans vagin al No observ ation record ed. [facility] [address], [place], [address], 02/02/2025 16:57:32 02/03/20 25 02/02/2025 US, obste tric, trans vagin al No observ ation record ed. [email or web address] [address], [place], [address], 02/03/2025 23:19:10 Result Notes None recorded. Procedures Surgical History Date Name Laterality Status Provider Name and Address Organization Details Recorded Time 7 Tonsillectomy completed Zenaida Arevalo [facility] 01/11/2021 12:32:53 Imaging Results None recorded. [...] completed Not Available Not Available Not Available June FE .5 (28) 1.5 mg-30 mcg (21)/75 mg (7) [...] and Address Organization Details Last Updated DateTime 12/18/2024 172.72 cm 22 kg/m2 35273.89 g 120/78 mm[Hg] Ximnea Blanco [facility] 12/18/2024 12:28:04 Social History Question Answer Notes LastModified by Organizat ion Details LastModified Time Tobacco Smoking Status Never Smoker [place], [facility] 12/18/2019 12:58:42 If You Are , What Was Your Level Of Alcohol Consumption Prior To ? None [email or web address] Information not available 01/11/2021 Are You Blind Or Do You Have Difficulty Seeing? No [email or web address] Information n ot available 01/11/2021 What Is Your Level Of Caffeine Consumption? Occasional [email or web address] Information not available 01/11/2021 In The 14 Days Before Symptom Onset, Have You Had Close Contact With A Laboratory-confirm ed COVID-19 While That Case Was Ill? No [email or web address] Information n ot available 01/11/2021 In The 14 Days Before Symptom Onset, Have You Had Close Contact With A Person Who Is Under Investigation For COVID-19 While That Person Was Ill? No [email or web address] Information not available 01/11/2021 Have You Been To An Area Known To Be High Risk For COVID-19? No [email or web address] Information not available 01/11/2021 Are You Deaf Or Do You Have Serious Difficulty Hearing? No [email or web address] Information not available 01/11/2021 What Type Of Diet Are You Following? REGULAR [email or web address] Information n ot available 01/11/2021 Have You Ever Been Counseled For Unhealthy Alcohol Use? No [email or web address] Information not available 01/11/2021 Do You Use Your Seat Belt Or Car Seat Routinely? Yes [email or web address] Information not available 01/11/2021 Do You Have Smoke And Carbon Monoxide Detectors In Your Home? Yes [email or web address] Information not available 01/11/2021 Do You Use Sunscreen Routinely? Yes [email or web address] Information not available 01/11/2021 Has Tobacco Cessation Counseling Been Provided? No [email or web address] Information not available 01/11/2021 Sex: Unknown Functional Status Question Answer Note LastModified by Organizat ion Details LastModified Time Do you use any illicit or recreational drugs? No [email or web address] Information not available 01/11/2021 Do you or have you ever used any other forms of tobacco or nicotine? No Information not available 01/11/2021 What is your level of alcohol consumption? Occasional [email or web address] Information not available 01/11/2021 Are you able to walk independently without assistance or assistive devices? YESWOREST [email or web address] Information not available 01/11/2021 What is your exercise level? Occasional [email or web address] Information not available 01/11/2021 Mental Status Question Answer Note LastModified by Organization D etails LastModified Time Do you feel stressed (tense, restless, nervous, or anxious, or unable to sleep at night)? [id number] [email or web address] Information not available 01/11/2021 Family History Relationship [...] available 2019 13:05:59 Maternal Aunt Endometrial carcinoma [email or web address] Not available 01/13 15:43:27 Maternal Aunt Endometrial carcinoma [email or web address] Not available 01/13 15:43:27 Son Malignant neoplasm [...] ICD10 Code Diagnosis IMO Codes Diagnosis Note [id number] ABBIE Ayon [place] [address] [address] 12/18/2024 11:56:28 12/18/2024 15:26:14 Gynecologic examination 20036096 Z01.486 [id number] WWEBC - declined, encouraged daily PNVPap - done [...] dietary consult advised. Questions answered. Vaginal odor [id number] N 89.8 851048 vaginitis/ STI panel sentrx for BV, r/b/a reviewedvu lvar care guidelines discussed Venereal d isease screening 168198159 Z11.3 50764 Health Concerns Section Related Observation LastModified by Organization Detai ls LastModified Time None Recorded Concern Status LastModified by Organization Details LastModified Time None Recorded Payers Encounter Date Sequence Insurance Name Policy Number Policy Reyes Covered Member ID Reyes Member ID Guarantor Name 12/18/2024 1 [facility] (MEDICAID HMO) [id number] Yahaira Tiline [id number] Yahaira Tiline Notes Date Note Type Note Provider Name and Address Organization Details Recorded Time 5 text/html Annual GYNReported by PatientGenitourinary symptomsFor vagina, patient reportsfoul-smelling. For menstrual cycle, patient reportsnormal menses. For urinary symptoms, patient reportsno hematuriaandno incontinence. For vulva, patient reportsno genital lesion.Breast symptomsFor breast, patient reportsno breast pain,no breast lump, andno nipple discharge.ContraceptionFo r current contraception, patient reportsbirth control not practiced.Endocrine symptomsFor sexual complaints, patient reportsno sexual complaints,no pain during intercourse, andnormal libido. For menopausal symptoms, patient reportsno menopausal symptomsandnormal vaginal lubrication.Psychological symptomsFor psychological symptoms, patient reportsno depression,no anxiety, andno pmdd.Preventative measuresFor preventive measures, patient reportsencourage self breast examination,encourage regular exercise,encourage no tobacco use, andencourage regular mammograms starting age 40.19yo wweno pap hxfishy odor after IC x 2-3 monthswould like STI testing today ABBIE Ayon [address], [place], [address], [place] [facility] 12/18/2024 15:21:23 OBGyn Episode No OBEpisode recorded.
--- OUTSIDE RECORDS SUMMARY | 2025-02-13 17:46 | XMS_ITS | Continuity of Care Document ---
Author Organization [facility] [place] Address [address] [place] [address] Assessment No assessment recorded. Plan of Treatment Reminders Order Date Submit Date Provider Last Modified By Organization Details Last Modified Time Details Appointments None recorded. Lab None recorded. Referral None recorded. Procedures None recorded. Surgeries None recorded. Imaging US, obstetric, transvagina l 2024 025 [facility], [facility] [address], [place], [address], 23:38:12 Medication Orders None recorded. Patient TargetsNo targets recorded. Patient InstructionsNo instructions recorded. Reason for Referral None Reported. Results Created Date Observation Date Name Description Value Unit Range Abnormal Flag Note LastModifiedBy Organization Detail LastModifiedTime 01/27/20 25 01/26/2025 US, obste tric, trans vagin al No observ ation record ed. [facility] [address], [place], [address], 01/26/2025 16:58:27 01/27/20 25 01/26/2025 US, obste tric, trans vagin al No observ ation record ed. [email or web address] [facility] [address], [place], [address], 01/26/2025 18:03:28 02/03/20 25 02/02/2025 US, obste tric, trans vagin al No observ ation record ed. [facility] [address], [place], [address], 02/02/2025 16:57:32 02/03/20 25 02/02/2025 US, obste tric, trans vagin al No observ ation record ed. [email or web address] [facility] [address], [place], [address], 02/03/2025 23:19:10 Result Notes None recorded. Procedures Surgical History Date Name Laterality Status Provider Name and Address Organization Details Recorded Time 7 Tonsillectomy completed Zenaida Arevalo [facility] 01/11/2021 12:32:53 Imaging Results None recorded. [...] Tobacco Smoking Status Never Smoker [facility] [place] [facility] 12/18/2019 12:58:42 If You Are , What Was Your Level Of Alcohol Consumption Prior To ? None [email or web address] Information not available 01/11/2021 Are You Blind Or Do You Have Difficulty Seeing? No [email or web address] Information n ot available 01/11/2021 What Is Your Level Of Caffeine Consumption? Occasional [email or web address] Information not available 01/11/2021 In The 14 Days Before Symptom Onset, Have You Had Close Contact With A Laboratory-confirm ed COVID-19 While That Case Was Ill? No Information n ot available 01/11/2021 In The 14 Days Before Symptom Onset, Have You Had Close Contact With A Person Who Is Under Investigation For COVID-19 While That Person Was Ill? No [email or web address] Information not available 01/11/2021 Have You Been To An Area Known To Be High Risk For COVID-19? No [email or web address] Information not available 01/11/2021 Are You Deaf Or Do You Have Serious Difficulty Hearing? No [email or web address] Information not available 01/11/2021 What Type Of Diet Are You Following? REGULAR [email or web address] Information n ot available 01/11/2021 Have You Ever Been Counseled For Unhealthy Alcohol Use? No [email or web address] Information not available 01/11/2021 Do You Use Your Seat Belt Or Car Seat Routinely? Yes [email or web address] Information not available 01/11/2021 Do You Have Smoke And Carbon Monoxide Detectors In Your Home? Yes [email or web address] Information not available 01/11/2021 Do You Use Sunscreen Routinely? Yes [email or web address] Information not available 01/11/2021 Has Tobacco Cessation Counseling Been Provided? No [email or web address] Information not available 01/11/2021 Sex: Unknown Functional Status Question Answer Note LastModified by Organizat ion Details LastModified Time Do you use any illicit or recreational drugs? No [email or web address] Information not available 01/11/2021 Do you or have you ever used any other forms of tobacco or nicotine? No [email or web address] Information not available 01/11/2021 What is your level of alcohol consumption? Occasional [email or web address] Information not available 01/11/2021 Are you able to walk independently without assistance or assistive devices? YESWOREST [email or web address] Information not available 01/11/2021 What is your exercise level? Occasional [email or web address] Information not available 01/11/2021 Mental Status Question Answer Note LastModified by Organization D etails LastModified Time Do you feel stressed (tense, restless, nervous, or anxious, or unable to sleep at night)? [id number] [email or web address] Information not available 01/11/2021 Family History Relationship Description Onset Age of this Age Resolved Age Notes LastModified by Organization Details LastModified Time Mother Malignant neoplasm of cervix uteri [email or web address] Not available 07/2019 12:57:13 Mother Hypertensive disorder [...] available 01/13 15:43:27 Maternal Aunt Endometrial carcinoma [email or web address] Not available 01/13 15:43:27 Son Malignant neoplasm of ovary matern al cousin x2 [email or web address] Not available 01/13/2021 15:42:56 Medical History Condition [...] ICD10 Code Diagnosis IMO Codes Diagnosis Note [id number] Franklin Avendaño MD [place] [address] [place] [address] 01/26/2025 14:29:35 01/26/2025 15:03:50 Uncertain viability of [id number] O36.80X0 Z3A.01 [id number] Franklin Avendaño MD [place] [address] [address] 01/26/2025 14:30:49 01/26/2025 17:40:53 [id number] Franklin Avendaño MD [place] [address] [place] [address] 02/02/2025 13:23:19 02/02/2025 14:08:12 Missed miscarriage [id number] O02.1 Z3A.01 73018 [id number] Franklin Avendaño MD [place] [address] [address] 02/02/2025 14:37:10 02/02/2025 15:24:13 Missed miscarriage 07268582 O02.1 796139 This patient is a 19 y/o female [...] Reyes Member ID Guarantor Name 02/02/2025 1 [facility] (MEDICAID HMO) [id number] [facility] [id number] [facility] Notes Date Note Type Note Provider Name [...] total. Franklin Avendaño MD [address], [place], [address], [place] [facility] 02/02/2025 15:18:18 OBGyn Episode No OBEpisode recorded.
--- OUTSIDE RECORDS SUMMARY | 2025-02-13 17:46 | XMS_ITS | Clinical Summary ---
Author Organization [facility] [employer] Address [address] [place] [address] Care Team Providers Care Radio Board Operator Announcer Name Role Phone Provider, No Pcp Primary Care Provider Unavailab le Source Comments [facility] [employer],non-owned Affiliates and Associated Physician Practices is amultiple site organization consisting of ambulatory clinics and hospital sitesin [place], [place], [place]. This disclosure is being madepursuant to the Care Everywhere program and may not contain all information available regarding this patient. Last updated 17.[facility] [employer] Allergies No known active allergies Medications * Be aware that medications may not be up to date on this document. Alwaysverify current medications with the patient. hydrocodone-jackelin taminophen 7.5-325 MG/15ML solution Take 10 mL by mouth every 4 hours as needed for Pain. 400 mL 1 4 Active Additional Information Patient not taking.Reported on 07/19/2024 Active Problems Problem Noted Date Diagnosed Date Chronic tonsillitis and adenoiditis 11/07/2013 Overview (01/20/2015): Hypertrophy of tonsils with hypertrophy of adeno ids 11/07/2013 Overview (12/13/2014): Sleep apnea 11/07/2013 Overview (12/13/2014): Family History Medical History Relation Name Comments Anesthesia Reaction Mother PONV Relation Name Status Comments Mother Social History Tobacco Use Types Packs/Day Years Used Date Smoking Tobacco: Never Smokeless Tobacco: Never Tobacco Cessation:Counseling Given: Not Answered Alcohol Use Standard Drinks/Week Comments Never 0 (1 standard drink = 0.6 oz pur e alcohol) Comments No Sex and Gender Information Value Date Recorded Sex Assigned at Not on file Legal Sex Female 5:43 AM [employer] Gender Identity Not on file Sexual Orientation Not on file Last Filed Vital Signs Vital Sign Reading Time Taken Comments Blood Pressure 114/76 07/19/2024 1:41 PM CDT Pulse 86 07/19/2024 1:41 PM CDT Temperature 36.8 C (98.2 F) 07/19/2024 1:41 PM CDT Respiratory Rate 24 11/07/2013 5:00 PM CDT Oxygen Saturation 98% 07/19/2024 1:41 PM CDT Inhaled Oxygen Concentration - - Weight 67.1 kg (148 lb) 07/19/2024 1:41 PM CDT Height 174 cm (5' 8.5) 07/19/2024 1:41 PM CDT Body Mass Index 22.18 07/19/2024 1:41 PM CDT Plan of Treatment Health Maintenance Due Date Last Done Comments HIV SCREENING 08/02/2018 HPV VACCINE (1 - 3-dose series) 08/02/2018 MENINGOCOCCAL (Group B) VACC INE SHARED DECISION-MAKING (1 of 2 - Standard) 2019 HEPATITIS C SCREENING 07/29/2021 DTAP/TDAP/TD VACCINES (1 - Tdap) 08/02/2022 HEPATITIS B VACCINE (1 of 3 - 19+ 3-dose series) 08/02/2022 DEPRESSION SCREENING 03/15/2024 CHLAMYDIA/GONORRHEA SCREENING 06/03/2024 06/04/2023 PAP SMEAR 08/02/2024 COVID-19 VACCINE ( - 2024-2 6 season) 2024 INFLUENZA VACCINE (#1) 2024 ZOSTER VACCINE (1 of 2) 08/02/2053 HIB VACCINE Aged Out No longer eligi ble based on patient's age to complete this topic MENINGOCOCCAL GROUPS A/C/Y/W VACCINE Aged Out No longer eligible b ased on patient's age to complete this topic PNEUMOCOCCAL VACCINE Aged Out No long er eligible based on patient's age to complete this topic Insurance [facility] MEDICAID - OUT OF STATE Care Teams Radio Board Operator Announcer Relationship Specialty Start Date End Date Provider, No Pcp PCP - General 05/17/24
--- OUTSIDE RECORDS SUMMARY | 2025-02-13 17:46 | XMS_ITS | Continuity of Care Document ---
Author Organization [facility] [place] Address [address] [place] [address] Assessment No assessment recorded. Plan of Treatment Reminders Order Date Submit Date Provider Last Modified By Organization Details Last Modified Time Details Appointments None recorded. Lab None recorded. Referral None recorded. Procedures None recorded. Surgeries None recorded. Imaging US, obstetric, transvagina l 2024 025 [facility], [facility] [address], [place], [address], 17:50:56 Medication Orders None recorded. Patient TargetsNo targets recorded. Patient InstructionsNo instructions recorded. Reason for Referral None Reported. Results Created Date Observation Date Name Description Value Unit Range Abnormal Flag Note LastModifiedBy Organization Detail LastModifiedTime 01/27/2001/26/2025 US, obste tric, trans vagin al No observ ation record ed. [facility] [address], [place], [address], 01/26/2025 16:58:27 01/27/20 25 01/26/2025 US, obste tric, trans vagin al No observ ation record ed. [email or web address] [place] [address], [place], [address], 01/26/2025 18:03:28 02/03/20 25 02/02/2025 US, obste tric, trans vagin al No observ ation record ed. [facility] [address], [place], [address], 02/02/2025 16:57:32 02/03/20 25 02/02/2025 US, obste tric, trans vagin al No observ ation record ed. [email or web address] [place] [address], [place], [address], 02/03/2025 23:19:10 Result Notes None recorded. Procedures Surgical History Date Name Laterality Status Provider Name and Address Organization Details Recorded Time 7 Tonsillectomy completed Zenaida Arevalo [facility] 01/11/2021 12:32:53 Imaging Results None [...] Tobacco Smoking Status Never Smoker Tri Lancaster [facility] 12/18/2019 12:58:42 If You Are , What Was Your Level Of Alcohol Consumption Prior To ? None [email or web address] Information not available 01/11/2021 Are You Blind Or Do You Have Difficulty Seeing? No [email or web address] Information n ot available 01/11/2021 What Is Your Level Of Caffeine Consumption? Occasional Information not available 01/11/2021 In The 14 Days Before Symptom Onset, Have You Had Close Contact With A Laboratory-confirm ed COVID-19 While That Case Was Ill? No Information n ot available 01/11/2021 In The 14 Days Before Symptom Onset, Have You Had Close Contact With A Person Who Is Under Investigation For COVID-19 While That Person Was Ill? No [email or web address] Information not available 01/11/2021 Have You Been To An Area Known To Be High Risk For COVID-19? No [email or web address] Information not available 01/11/2021 Are You Deaf Or Do You Have Serious Difficulty Hearing? No [email or web address] Information not available 01/11/2021 What Type Of Diet Are You Following? REGULAR [email or web address] Information n ot available 01/11/2021 Have You Ever Been Counseled For Unhealthy Alcohol Use? No [email or web address] Information not available 01/11/2021 Do You Use Your Seat Belt Or Car Seat Routinely? Yes [email or web address] Information not available 01/11/2021 Do You Have Smoke And Carbon Monoxide Detectors In Your Home? Yes [email or web address] Information not available 01/11/2021 Do You Use Sunscreen Routinely? Yes [email or web address] Information not available 01/11/2021 Has Tobacco Cessation Counseling Been Provided? No [email or web address] Information not available 01/11/2021 Sex: Unknown Functional Status Question Answer Note LastModified by Organizat ion Details LastModified Time Do you use any illicit or recreational drugs? No [email or web address] Information not available 01/11/2021 Do you or have you ever used any other forms of tobacco or nicotine? No Information not available 01/11/2021 What is your level of alcohol consumption? Occasional Information not available 01/11/2021 Are you able to walk independently without assistance or assistive devices? YESWOREST [email or web address] Information not available 01/11/2021 What is your exercise level? Occasional [email or web address] Information not available 01/11/2021 Mental Status Question Answer Note LastModified by Organization D etails LastModified Time Do you feel stressed (tense, restless, nervous, or anxious, or unable to sleep at night)? [id number] [email or web address] Information not available 01/11/2021 Family History Relationship [...] available 01/13 15:43:27 Maternal Aunt Endometrial carcinoma [email or web address] Not available 01/13 15:43:27 Son Malignant neoplasm of ovary matern al cousin x2 [email or web address] Not available 01/13/2021 15:42:56 Medical History Condition [...] ICD10 Code Diagnosis IMO Codes Diagnosis Note [id number] Franklin Avendaño MD [place] [address],[facility] [place] [address] 01/26/2025 14:29:35 01/26/2025 15:03:50 Uncertain viability of [id number] O36.80X0 Z3A.01 [id number] Franklin Avendaño MD [place] [address],[facility] [place] [address] 01/26/2025 14:30:49 01/26/2025 17:40:53 Health Concerns Section Related Observation LastModified by Organization Detai ls LastModified Time None Recorded Concern Status LastModified by Organization Details LastModified Time None Recorded Payers Encounter Date Sequence Insurance Name Policy Number Policy Reyes Covered Member ID Reyes Member ID Guarantor Name 01/26/2025 1 [facility] (MEDICAID HMO) [id number] Yahaira Spraggs [id number] Yahaira Spraggs OBGyn Episode No OBEpisode recorded.
--- OUTSIDE RECORDS SUMMARY | 2025-02-13 17:46 | XMS_ITS | Continuity of Care Document ---
Author Organization [facility] [place] Address [address] [place] [address] Assessment No assessment recorded. Plan of Treatment [...] vagin al No observ ation record ed. [facility] [address], [place], [address], 01/26/2025 16:58:27 01/27/20 25 01/26/2025 US, obste tric, trans vagin al No observ ation record ed. [email or web address] [place] [address], [place], [address], 01/26/2025 18:03:28 02/03/20 25 02/02/2025 US, obste tric, trans vagin al No observ ation record ed. [facility] [address], [place], [address], 02/02/2025 16:57:32 02/03/20 25 02/02/2025 US, obste tric, trans vagin al No observ ation record ed. [email or web address] [place] [address], [place], [address], 02/03/2025 23:19:10 Result Notes None recorded. Procedures Surgical History Date Name Laterality Status Provider Name and Address Organization Details Recorded Time 7 Tonsillectomy completed Zenaida Arevalo [facility] 01/11/2021 12:32:53 Imaging Results None recorded. [...] Updated DateTime 02/07/2025 172.72 cm 22.4 kg/m2 47410.08 g 137/82 mm[Hg] Sangita Roderick [facility] 02/07/2025 17:19:35 Social History Question Answer Notes LastModified by Organizat ion Details LastModified Time Tobacco Smoking Status Never Smoker Tri [place] null, [facility] 12/18/2019 12:58:42 If You Are , What Was Your Level Of Alcohol Consumption Prior To ? None [email or web address] Information not available 01/11/2021 Are You Blind Or Do You Have Difficulty Seeing? No [email or web address] Information n ot available 01/11/2021 What Is Your Level Of Caffeine Consumption? Occasional [email or web address] Information not available 01/11/2021 In The 14 Days Before Symptom Onset, Have You Had Close Contact With A Laboratory-confirm ed COVID-19 While That Case Was Ill? No [email or web address] Information n ot available 01/11/2021 In The 14 Days Before Symptom Onset, Have You Had Close Contact With A Person Who Is Under Investigation For COVID-19 While That Person Was Ill? No Information not available 01/11/2021 Have You Been To An Area Known To Be High Risk For COVID-19? No [email or web address] Information not available 01/11/2021 Are You Deaf Or Do You Have Serious Difficulty Hearing? No [email or web address] Information not available 01/11/2021 What Type Of Diet Are You Following? REGULAR [email or web address] Information n ot available 01/11/2021 Have You Ever Been Counseled For Unhealthy Alcohol Use? No [email or web address] Information not available 01/11/2021 Do You Use Your Seat Belt Or Car Seat Routinely? Yes [email or web address] Information not available 01/11/2021 Do You Have Smoke And Carbon Monoxide Detectors In Your Home? Yes [email or web address] Information not available 01/11/2021 Do You Use Sunscreen Routinely? Yes [email or web address] Information not available 01/11/2021 Has Tobacco Cessation Counseling Been Provided? No [email or web address] Information not available 01/11/2021 Sex: Unknown Functional Status Question Answer Note LastModified by Organizat ion Details LastModified Time Do you use any illicit or recreational drugs? No [email or web address] Information not available 01/11/2021 Do you or have you ever used any other forms of tobacco or nicotine? No [email or web address] Information not available 01/11/2021 What is your level of alcohol consumption? Occasional [email or web address] Information not available 01/11/2021 Are you able to walk independently without assistance or assistive devices? YESWOREST [email or web address] Information not available 01/11/2021 What is your exercise level? Occasional [email or web address] Information not available 01/11/2021 Mental Status Question Answer Note LastModified by Organization D etails LastModified Time Do you feel stressed (tense, restless, nervous, or anxious, or unable to sleep at night)? [id number] [email or web address] Information not available 01/11/2021 Family History Relationship [...] available 2019 13:05:59 Maternal Aunt Endometrial carcinoma [email or web address] Not available 01/13 15:43:27 Maternal Aunt Endometrial carcinoma [email or web address] Not available 01/13 15:43:27 Son Malignant neoplasm of ovary matern al cousin x2 [email or web address] Not available 01/13/2021 15:42:56 Medical History Condition [...] ICD10 Code Diagnosis IMO Codes Diagnosis Note [id number] Franklin Avendaño MD [place] [address],[place] [address] 01/26/2025 14:29:35 01/26/2025 15:03:50 Uncertain viability of [id number] O36.80X0 Z3A.01 [id number] Franklin Avendaño MD [place] [address],[place] [address] 01/26/2025 14:30:49 01/26/2025 17:40:53 [id number] Franklin Avendaño MD [place] [address],[place] [address] 02/02/2025 13:23:19 02/02/2025 14:08:12 Missed miscarriage 21039438 O02.1 Z3A.01 96336 [id number] Franklin Avendaño MD [place] [address],[place] [address] 02/02/2025 14:37:10 02/02/2025 15:24:13 Missed miscarriage [id number] O02.1 320030 This patient is a 19 y/o female [...] minutes on the patient's care in total. [id number] RUBY BENITEZ MD [place] [address] [address] 02/07/2025 17:15:31 02/07/2025 17:36:06 Missed miscarriage [id number] O02.1 25082 - diagnosed 02/02- cytotec taken yesterday, appropriat [...] Member ID Reyes Member ID Guarantor Name 02/07/2025 1 [facility] (MEDICAID HMO) [id number] Yahaira [place] [id number] [facility] Notes Date Note Type Note Provider Name and Address Organization Details Recorded Time 02/07/2025 text/html ROS as noted in the HPI Patient presents for miscarriage follow up. Was seen 1 week ago and diagnosed with missed miscarriage. She was given cytotec which she placed yesterday. Since placement she has had heavy bleeding and cramping. Not soaking through more than 2 pads per hour. No fevers or chills. RUBY BENITEZ MD [address], [place], [address], [facility] 02/07/2025 17:33:38 OBGyn Episode No OBEpisode recorded.
[2025-02-13 18:04] VITALS: BP 114/63; PULSE 135; RESP 18; TEMP 37.6; O2SAT 99
[2025-02-13 18:14] LABS: EDSTREPNEGPOS1 Positive (Negative)
[2025-02-13 18:20] LABS: EDCOVIDSCREEN Negative (Negative); EDINFLUASCREEN Negative (Negative); EDINFLUBSCREEN Negative (Negative)
== END 2025-02-13 18:41 | disposition home or self-care (01) ==
PROVIDERS: Emergency Provider Nurse Practitioner Family; PCP Pediatrics
DX: J02.0 Streptococcal pharyngitis (principal); Z20.822 Contact with and (suspected) exposure to COVID-19
CPT/HCPCS: 87426; 87804; 87880; 99213; G0463